=== PATIENT | female | born 2000 | race Caucasian/White ===

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

== ENCOUNTER 2020-02-13 21:17 | Emergency (ER) | payer BC, MEDICAID ==
[2020-02-13] MEDS ORDERED: Sodium Chloride 0.9% 1,000 ML IV ONE (22:16)
[2020-02-13] MEDS ORDERED: Acetaminophen 325 MG Tab PO ONE (22:16)
[2020-02-13 22:31] LABS: BLOOD UREA NITROGEN,BUN 11 mg/dL (7.0-18.0); CARBON DIOXIDE,CO2 20.2 mmol/L (21.0-32.0); CHLORIDE,CL 101 mmol/L (98-107); GLUCOSE RANDOM 90 mg/dL (74-106); POTASSIUM,K 3.8 mmol/L (3.5-5.1); SODIUM,NA 136 mmol/L (136-145)
--- NOTE | 2020-02-13 23:43 | US ---
HISTORY: Positive test. Unknown dates. COMPARISON: None available of this gestation. TECHNIQUE: Transabdominal and transvaginal ultrasound examination of the early was performed. Initial examination was performed with transvaginal technique. Transvaginal examination is used for better evaluation of the and ovaries. FINDINGS: A single intrauterine gestational sac is seen with a pole. The crown-rump length measurement of 1.2 cm gives an estimated gestational age of 7 weeks 3 days. The mean sac diameter of 2.7 centimeters gives an estimated age of 8 weeks 0 days. The composite ultrasound age is 7 weeks 5 days with an estimated date of delivery of 09/26/2020. Regular cardiac activity is seen at 163 BPM. There is no sign of free fluid in the pelvis. There is a hypoechoic region in the right ovary measuring up to 2.0 centimeters in diameter consistent with a resolving corpus luteum cyst of or hemorrhagic cyst. There is pain over the right ovary during ultrasound examination. The left ovary is normal in appearance. There is normal color and pulse Doppler flow in both ovaries. No sign of free fluid. IMPRESSION: Single intrauterine gestation with estimated age of 7 weeks 5 days. Regular cardiac activity is seen. Area of pain corresponds to the right ovary which has a hemorrhagic cyst, possibly a resolving corpus luteum cyst of . Normal color and pulse Doppler flow in both ovaries. Dictated by Kenn Hale MD @ Feb 13 2020 11:36PM Signed by Dr. Kenn Hale @ Feb 13 2020 11:41PM
[2020-02-14] MEDS ORDERED: Nitrofurantoin Monohydrate/Macrocrystalline 100 MG Cap PO ONE (00:01)
--- NOTE | 2020-02-14 00:07 | EDM.PDOC ---
ED HPI GENERAL MEDICAL PROBLEM - General Chief Complaint: Abdominal Pain Stated Complaint: RIGHT LOWER ABDOMINAL PAIN Time Seen by Provider: 02/13/20 22:00 Source of Information: Reports: Patient History Limitations: Reports: No Limitations - History of Present Illness INITIAL COMMENTS - FREE TEXT/NARRATIVE: HISTORY AND PHYSICAL: History of present illness: Is a 19-year-old female who is 1 para 1 who presents the ER today complaining of pain to her right lower quadrant. Patient reports that she has a 1-year-old baby that she is currently breast-feeding. Patient reports that she has not had her menses since her delivery. Patient denies any recent fevers , shakes, chills, nausea, vomiting, diarrhea, dysuria, frequency, urgency, chest pain, shortness of breath. Patient reports that she is tolerating p.o.'s well and has a good appetite. Patient reports that the pain started in her right lower quadrant approximately 3 to 4 days ago and then resolved. Patient reports that this evening the pain came back again. Patient ports no pain with ambulation or cough. Patient denies any vaginal discharge or vaginal bleeding. Patient denies any dysuria frequency urgency. Patient has any melena or bright red blood per rectum. Patient reports normal p.o. intake. Review of systems: As per history of present illness and below otherwise all systems reviewed and negative. Past medical history: As per history of present illness and as reviewed below otherwise noncontributory. Surgical history: As per history of present illness and as reviewed below otherwise noncontributory. Social history: No reported history of drug or alcohol abuse. Family history: As per history of present illness and as reviewed below otherwise noncontributory. Physical exam: Constitutional: Patient is oriented to person, place, and time. Appears well- developed and well-nourished. No distress. HEENT: Moist mucous membranes Head: Normocephalic and atraumatic Eyes: Right eye exhibits no discharge. Left eye exhibits no discharge. No scleral icterus Neck: Normal range of motion. No tracheal deviation present. Cardiovascular: Normal rate and regular rhythm. Pulmonary: Effort normal, no respiratory distress. Abdominal: Soft nondistended no rebound no guarding, no psoas or feed preparation operator signs , no tenderness at McBurney's point. Patient does have tenderness in her right suprapubic region. Musculoskeletal: Normal range of motion Neurologic: Alert and oriented to person, place and time. Skin: [place], warm and dry. Psychiatric: Normal mood and affect. Behavior is normal. Judgment and thought content normal. Nursing note and vital signs have been reviewed Pelvic exam: Deferred for PCP per patient request wants to be discharged at this time. Diagnostics: Ultrasound pelvic reveals intrauterine with. Urinalysis reveals urinary tract infection. Therapeutics: Macrobid 100 p.o. twice daily x7 days. Tylenol as needed for pain. Follow-up with primary care physician in 1 to 2 days for reevaluation. Impression: 1. Intrauterine 2. Pelvic pain 3. Threatened miscarriage 4. Urinary tract infection Plan: Above Reassessment at the time of disposition demonstrates that the patient is in no acute distress. The patient has remained stable throughout the entire ED visit and is without objective evidence for acute process requiring urgent intervention or hospitalization. The patient is stable for discharge, counseling is provided as documented above, discussed symptomatic treatment and specific conditions for return. I have spoken with the patient/caregive and discussed todays findings, in addition to providing specific details for the plan of care. Questions are answered and there is agreement with the plan. Definitive disposition and diagnosis as appropriate pending reevaluation and review of above. 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: Musculoskeletal History: Reports: None Neurological History: Reports: Other (See Below) Psychiatric History: Reports: Anxiety, Depression Endocrine/Metabolic History: Reports: None Hematologic History: Reports: Anemia Immunologic History: Reports: None Oncologic (Cancer) History: Reports: None Dermatologic History: Reports: None - Infectious Disease History Infectious Disease History: Reports: None - Past Surgical History Head Surgeries/Procedures: Reports: None HEENT Surgical History: Reports: Tonsillectomy Musculoskeletal Surgical History: Reports: Other (See Below) Social & Family History - Family History Family Medical History: Noncontributory - Tobacco Use Smoking Status *Q: Never Smoker Second Hand Smoke Exposure: No - Caffeine Use Caffeine Use: Reports: Soda - Recreational Drug Use Recreational Drug Use: No - Living Situation & Occupation Living situation: Reports: Single, Other Occupation: Student ED ROS GENERAL - Review of Systems Review Of Systems: Comprehensive ROS is negative, except as noted in HPI. ED EXAM, GENERAL - Physical Exam Exam: See Below Course - Vital Signs Last Recorded V/S: Last Vital Signs Temp 96.9 F 02/13/20 21:45 Pulse 88 02/13/20 21:45 Resp 14 02/13/20 21:45 BP 116/69 02/13/20 21:45 Pulse Ox 98 02/13/20 21:45 - Orders/Labs/Meds Orders: Active Orders 24 hr Category Date Time Status CULTURE URINE [RM] Stat Lab 02/13/20 21:40 Received Nitrofurantoin Elk/Macrocryst [Macrobid] Med 02/14/20 00:01 Once 100 mg PO ONETIME ONE Labs: Laboratory Tests 02/13/20 02/13/20 02/13/20 Range/Units 21:40 21:40 22:00 WBC 10.74 (4.0-11.0) K/uL RBC 4.76 (4.30-5.90) M/uL Hgb 13.9 (12.0-16.0) g/dL Hct 39.4 (36.0-46.0) % MCV 82.8 (80.0-98.0) fL MCH 29.2 (27.0-32.0) pg MCHC 35.3 (31.0-37.0) g/dL RDW Std Deviation 38.2 (28.0-62.0) fl RDW Coeff of Nohemy 13 (11.0-15.0) % Plt Count 233 (150-400) K/uL MPV 9.20 (7.40-12.00) fL Nucleated RBC % 0.0 /100WBC Nucleated RBCs # 0 K/uL Sodium (136-145) mmol/L Potassium (3.5-5.1) mmol/L Chloride (98-107) mmol/L Carbon Dioxide (21.0-32.0) mmol/L BUN (7.0-18.0) mg/dL Creatinine (0.6-1.0) mg/dL Est Cr Clr Drug Dosing mL/min Estimated GFR (MDRD) ml/min Glucose (74-106) mg/dL Calcium (8.5-10.1) mg/dL Total Bilirubin (0.2-1.0) mg/dL AST (15-37) IU/L ALT (14-63) IU/L Alkaline Phosphatase (46-116) U/L Total Protein (6.4-8.2) g/dL Albumin (3.4-5.0) g/dL Globulin (2.6-4.0) g/dL Albumin/Globulin Ratio (0.9-1.6) HCG, Quant mIU/mL Urine Color YELLOW Urine Appearance CLEAR Urine pH 6.0 (5.0-8.0) Ur Specific [place] >= 1.030 (1.001-1.035) Urine Protein NEGATIVE (NEGATIVE) mg/dL Urine Glucose (UA) NEGATIVE (NEGATIVE) mg/dL Urine Ketones NEGATIVE (NEGATIVE) mg/dL Urine Occult Blood NEGATIVE (NEGATIVE) Urine Nitrite NEGATIVE (NEGATIVE) Urine Bilirubin NEGATIVE (NEGATIVE) Urine Urobilinogen 0.2 (<2.0) EU/dL Ur Leukocyte Esterase SMALL H (NEGATIVE) Urine RBC 0-2 (0-2/HPF) Urine WBC 10-13 (0-5/HPF) Ur Epithelial Cells MODERATE (NONE-FEW) Urine Bacteria RARE (NEGATIVE) Urine Mucus MODERATE (NONE-MOD) Urine HCG, Qual POSITIVE (NEGATIVE) Blood Type 02/13/20 02/13/20 02/13/20 Range/Units 22:00 22:00 22:00 WBC (4.0-11.0) K/uL RBC (4.30-5.90) M/uL Hgb (12.0-16.0) g/dL Hct (36.0-46.0) % MCV (80.0-98.0) fL MCH (27.0-32.0) pg MCHC (31.0-37.0) g/dL RDW Std Deviation (28.0-62.0) fl RDW Coeff of Nohemy (11.0-15.0) % Plt Count (150-400) K/uL MPV (7.40-12.00) fL Nucleated RBC % /100WBC Nucleated RBCs # K/uL Sodium 136 (136-145) mmol/L Potassium 3.8 (3.5-5.1) mmol/L Chloride 101 (98-107) mmol/L Carbon Dioxide 20.2 L (21.0-32.0) mmol/L BUN 11 (7.0-18.0) mg/dL Creatinine 0.6 (0.6-1.0) mg/dL Est Cr Clr Drug Dosing 123.72 mL/min Estimated GFR (MDRD) > 60.0 ml/min Glucose 90 (74-106) mg/dL Calcium 9.1 (8.5-10.1) mg/dL Total Bilirubin 0.4 (0.2-1.0) mg/dL AST 23 (15-37) IU/L ALT 26 (14-63) IU/L Alkaline Phosphatase 73 (46-116) U/L Total Protein 7.4 (6.4-8.2) g/dL Albumin 3.9 (3.4-5.0) g/dL Globulin 3.5 (2.6-4.0) g/dL Albumin/Globulin Ratio 1.1 (0.9-1.6) HCG, Quant 893507.0 mIU/mL Urine Color Urine Appearance Urine pH (5.0-8.0) Ur Specific [place] (1.001-1.035) Urine Protein (NEGATIVE) mg/dL Urine Glucose (UA) (NEGATIVE) mg/dL Urine Ketones (NEGATIVE) mg/dL Urine Occult Blood (NEGATIVE) Urine Nitrite (NEGATIVE) Urine Bilirubin (NEGATIVE) Urine Urobilinogen (<2.0) EU/dL Ur Leukocyte Esterase (NEGATIVE) Urine RBC (0-2/HPF) Urine WBC (0-5/HPF) Ur Epithelial Cells (NONE-FEW) Urine Bacteria (NEGATIVE) Urine Mucus (NONE-MOD) Urine HCG, Qual (NEGATIVE) Blood Type A POSITIVE Meds: Medications Discontinued Medications Generic Name Dose Route Start Last Admin Trade Name Freq PRN Reason Stop Dose Admin Acetaminophen 650 mg 02/13/20 22:16 02/13/20 22:28 Tylenol PO 02/13/20 22:17 650 mg NOW ONE Administration Sodium Chloride 1,000 mls @ 999 mls/hr 02/13/20 22:16 02/13/20 22:29 Normal Saline IV 02/13/20 23:16 999 mls/hr .Bolus ONE Administration Departure - Departure Time of Disposition: 00:06 Disposition: Home, Self-Care 01 Condition: Good Clinical Impression: Threatened miscarriage in early , Right ovarian cyst UTI (urinary tract infection) Qualifiers: Urinary tract infection type: site unspecified Hematuria presence: without hematuria Qualified Code(s): N39.0 - Urinary tract infection, site not specified - Discharge Information *PRESCRIPTION DRUG MONITORING PROGRAM REVIEWED*: Not Applicable *COPY OF PRESCRIPTION DRUG MONITORING REPORT IN PATIENT [place]: Not Applicable Instructions: Threatened Miscarriage, Ovarian Cyst, [id number], Urinary Tract Infection, Adult, [id number] Referrals: Sherie Antony MD [Primary Care Provider] - Additional Instructions: You have been seen and evaluated today in the emergency department secondary to the pain you are experiencing in your right pelvic region. Your test was positive. Your ultrasound revealed a 7-week 5-day intrauterine as well as a right small hemorrhagic ovarian cyst. Also appears that you have a 's slight urinary tract infection will be treated with Macrobid twice a day for 7 days. You can take Tylenol as needed to help with the pain. Please make an appointment to follow-up with your OB doctor this week. The following information is given to patients seen in the emergency department who are being discharged to home. This information is to outline your options for follow-up care. We provide all patients seen in our emergency department with a follow-up referral. The need for follow-up, as well as the timing and circumstances, are variable depending upon the specifics of your emergency department visit. If you don't have a primary care physician on staff, we will provide you with a referral. We always advise you to contact your personal physician following an emergency department visit to inform them of the circumstance of the visit and for follow-up with them and/or the need for any referrals to a consulting specialist. The emergency department will also refer you to a specialist when appropriate. This referral assures that you have the opportunity for follow-up care with a specialist. All of these measure are taken in an effort to provide you with optimal care, which includes your follow-up. Under all circumstances we always encourage you to contact your private physician who remains a resource for coordinating your care. When calling for follow-up care, please make the office aware that this follow-up is from your recent emergency room visit. If for any reason you are refused follow-up, please contact the [facility] Emergency Department at and asked to speak to the emergency department charge nurse. Sepsis Event Note (ED) - Evaluation Sepsis Screening Result: No Definite Risk - Focused Exam Vital Signs: Vital Signs Temp Pulse Resp BP Pulse Ox 02/13/20 21:45 96.9 F 88 14 116/69 98 - My Orders Last 24 Hours: My Active Orders 02/13/20 21:40 CULTURE URINE [RM] Stat 02/14/20 00:01 Nitrofurantoin Elk/Macrocryst [Macrobid] 100 mg PO ONETIME ONE - Assessment/Plan Last 24 Hours: My Active Orders 02/13/20 21:40 CULTURE URINE [RM] Stat 02/14/20 00:01 Nitrofurantoin Elk/Macrocryst [Macrobid] 100 mg PO ONETIME ONE
[2020-02-14 00:27] VITALS: BP 106/76; PULSE 64
== END 2020-02-14 00:28 | disposition home or self-care (01) ==
LOC: MW.ED 21:17
DX: O20.0 Threatened abortion (principal); O34.81 Maternal care for other abnormalities of pelvic organs, first trimester; N83.201 Unspecified ovarian cyst, right side; O23.41 Unspecified infection of urinary tract in pregnancy, first trimester; O99.341 Other mental disorders complicating pregnancy, first trimester; F41.9 Anxiety disorder, unspecified; F32.9 Major depressive disorder, single episode, unspecified; Z88.1 Allergy status to other antibiotic agents; Z79.899 Other long term (current) drug therapy; Z3A.01 Less than 8 weeks gestation of pregnancy
CPT/HCPCS: 36415; 76817; 80053; 81001; 81025; 84702; 85027; 86900; 86901; 87086; 99284; A9270; J7030

== ENCOUNTER 2020-09-21 11:59 | Inpatient (IN) | payer MEDICAID ==
[2020-09-21] MEDS ORDERED: Sodium Chloride 0.9% 10 ML Syringe FLUSH PRN (12:42)
[2020-09-21] MEDS ORDERED: Misoprostol 200 MCG Tab PO PRN (12:42)
[2020-09-21] MEDS ORDERED: Butorphanol 1 MG/ML SDV IVPUSH PRN (12:42)
[2020-09-21] MEDS ORDERED: Water For Irrigation,Sterile 1,000 ML Container IRR PRN (12:42)
[2020-09-21] MEDS ORDERED: Methylergonovine 0.2 MG/1 ML Amp IM PRN (12:42)
[2020-09-21] MEDS ORDERED: Nalbuphine 10 MG/1 ML Vial IVPUSH PRN (12:42)
[2020-09-21] MEDS ORDERED: Sodium Chloride 0.9% 10 ML SDV IV PRN (12:42)
[2020-09-21] MEDS ORDERED: Sodium Chloride 0.9% 2.5 ML Syringe FLUSH PRN (12:42)
[2020-09-21] MEDS ORDERED: Carboprost Tromethamine 250 MCG/1 ML Amp IM PRN (12:42)
[2020-09-21] MEDS ORDERED: Tranexamic Acid 1,000 MG in Sodium Chloride 0.9% 100 ML IV PRN (12:42)
[2020-09-21] MEDS ORDERED: Lidocaine 1% 50 ML MDV INJECT PRN (12:42)
[2020-09-21] MEDS ORDERED: Oxytocin/0.9 % Sodium Chloride 30 UNIT/500 ML BAG IV SCH ×2 (12:45→13:15)
[2020-09-21] MEDS ORDERED: Misoprostol 25 MCG (1/4 of 100 MCG) Tab VAG PRN ×2 (13:04)
[2020-09-21] MEDS ORDERED: Terbutaline 1 MG/ML SDV SUBCUT PRN (13:04)
[2020-09-21] MEDS ORDERED: Misoprostol 25 MCG (1/4 of 100 MCG) Tab PO ONE (13:05)
--- NOTE | 2020-09-21 17:18 | PCM.LDHP ---
L&D History of Present Illness - General Date of Service: 09/21/20 Admit Problem/Dx: Patient Status Order with Admit Dx/Problem 09/21/20 12:42 Patient Status [ADT] Routine Admission Diagnosis/Problem Admission Diagnosis/Problem 09/21/20 17:10 Bess is a 19 yo at 39+4 weeks gestation (BARRETT 09/24/2020) that presents to L&D today with C/O spontaneous painful contractions. Reports adequate movement. Denies meghan vaginal bleeding, LOF at this time. A pos, Ab screen neg, RI, GBS neg. EFW via [place] 7-8 lbs. Pertinent medical history includes: anxiety, depression, NSVDx1. Ax: amoxicillin (hives); toradol (rash). Medications: PNV, hydroxyzine PRN for anxiety. Patient has no other complaints or concerns at this time. Patient was on hold for elective IOL today. Source of Information: Patient History Limitations: Reports: No Limitations - History of Present Illness Pain Score: 9 - Related Data Allergies/Adverse Reactions: Allergies Allergy/AdvReac Type Severity Reaction Status Date / Time amoxicillin Allergy Rash Verified 08/20/20 18:41 Home Medications: Home Meds Acetaminophen/Diphenhydramine [Tylenol Pm Ex-Strength Caplet] 2 tab PO BEDTIME 09/21/20 [History] Past Medical History HEENT History: Reports: Allergic Rhinitis Cardiovascular History: Reports: None Other Cardiovascular History: medication related tachycardia Respiratory History: Reports: None Gastrointestinal History: Reports: None Genitourinary History: Reports: None 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: 1 LMP (Approximate): Musculoskeletal History: Reports: Fracture Neurological History: Reports: None Psychiatric History: Reports: Anxiety, Depression Endocrine/Metabolic History: Reports: None Hematologic History: Reports: Anemia Immunologic History: Reports: None Oncologic (Cancer) History: Reports: None Dermatologic History: Reports: None - Infectious Disease History Infectious Disease History: Reports: None - Past Surgical History Head Surgeries/Procedures: Reports: None HEENT Surgical History: Reports: Tonsillectomy Female Surgical History: Reports: None Musculoskeletal Surgical History: Reports: ORIF Other Musculoskeletal Surgeries/Procedures:: left index finger Social & Family History - Family History Family Medical History: No Pertinent Family History HEENT: Reports: None Cardiac: Reports: Hypertension Respiratory: Reports: Asthma GI: Reports: Irritable Bowel Syndrome : Reports: None OBGYN: Reports: Musculoskeletal: Reports: Arthritis Neurological: Reports: Dementia Psychiatric: Reports: Anxiety, Depression, Suicide Attempt Endocrine/Metabolic: Reports: None Hematologic: Reports: None Immunologic: Reports: None Dermatologic: Reports: Eczema Oncologic: Reports: Colon, Leukemia - Tobacco Use Tobacco Use Status *Q: Never Tobacco User Second Hand Smoke Exposure: No - Caffeine Use Caffeine Use: Reports: Soda - Recreational Drug Use Recreational Drug Use: No - Living Situation & Occupation Living situation: Reports: Single, Other Occupation: Student H&P Review of Systems - Review of Systems: Review Of Systems: Comprehensive ROS is negative, except as noted in HPI. General: Reports: No Symptoms HEENT: Reports: No Symptoms Pulmonary: Reports: No Symptoms Cardiovascular: Reports: No Symptoms Gastrointestinal: Reports: No Symptoms Genitourinary: Reports: No Symptoms Musculoskeletal: Reports: No Symptoms Skin: Reports: No Symptoms Psychiatric: Reports: No Symptoms Neurological: Reports: No Symptoms Hematologic/Lymphatic: Reports: No Symptoms Immunologic: Reports: No Symptoms L&D Exam - Exam Exam: See Below - Vital Signs Vital Signs: VSS, afebrile. Weight: 180 lb - OB Specific Fundal Height In cm: 39 Contraction Frequency (min): occasional Contraction Intensity: Mild to Moderate Movement: Active Heart Tones: Present Heart Tones per Min: 125 Heart Rate (FHR) Variability: Moderate (6-25 bmp) Presentation: Vertex (via SVE and handheld TAUS) - Barksdale Score Barksdale Score Cervix Position: Posterior Barksdale Score Consistency: Soft Barksdale Score Effacement: 31-50% Barksdale Score Dilation: 1-2 cm Barksdale Score 's Station: -2 Barksdale Score Total: 5 - Exam General: Alert, Oriented, Cooperative HEENT: Conjunctiva Clear, Hearing Intact, Mucosa Moist & [place], PERRLA Neck: Supple, Trachea Midline Lungs: Clear to Auscultation, Normal Respiratory Effort Cardiovascular: Regular Rate, Regular Rhythm GI/Abdominal Exam: Normal Bowel Sounds, Soft, Non-Tender, No Organomegaly, No Distention Rectal Exam: Deferred Genitourinary: Normal speculum exam, Enlarged uterus (Gravid uterus) Back Exam: Normal Inspection, Full Range of Motion Extremities: Normal Inspection, Normal Range of Motion, Non-Tender, No Pedal Edema, Normal Capillary Refill Skin: Warm, Dry, Intact Neurological: Cranial Nerves Intact, Reflexes Equal Bilateral Psychiatric: Alert, Normal Affect, Normal Mood - Patient Data Lab Results Last 24 hrs: Laboratory Results - last 24 hr 09/21/20 09/21/20 09/21/20 Range/Units 12:15 12:15 12:45 WBC 10.65 (4.0-11.0) K/uL RBC 3.82 L (4.30-5.90) M/uL Hgb 8.9 L (12.0-16.0) g/dL Hct 29.7 L (36.0-46.0) % MCV 77.7 L (80.0-98.0) fL MCH 23.3 L (27.0-32.0) pg MCHC 30.0 L (31.0-37.0) g/dL RDW Std Deviation 45.9 (28.0-62.0) fl RDW Coeff of Nohemy 16 H (11.0-15.0) % Plt Count 237 (150-400) K/uL MPV 9.70 (7.40-12.00) fL Nucleated RBC % 1.2 /100WBC Nucleated RBCs # 0 K/uL SARS-CoV-2 RNA (MARYELLEN) NEGATIVE (NEGATIVE) Blood Type A POSITIVE Antibody Screen NEGATIVE Result Diagrams: 09/21/20 12:15 - Problem List (1) Encounter for induction of labor SNOMED Code(s): 834398672 ICD Code: Z34.90 - ENCNTR FOR SUPRVSN OF NORMAL , UNSP, UNSP TRIMESTER Status: Acute Current Visit: Yes (2) Uterine contractions SNOMED Code(s): 883442337 ICD Code: [id number] - Status: Acute Current Visit: Yes (3) 39 weeks gestation of SNOMED Code(s): 18703991 ICD Code: Z3A.39 - 39 WEEKS GESTATION OF Status: Acute Current Visit: Yes Problem List Initiated/Reviewed/Updated: Yes Orders Last 24hrs: Active Orders 24 hr Category Date Time Status Patient Status [ADT] Routine ADT 09/21/20 12:42 Active Bedrest Bathroom Privileges [RC] ASDIRECTED Care 09/21/20 13:04 Active Communication Order [RC] ASDIRECTED Care 09/21/20 13:04 Active Communication Order [RC] ASDIRECTED Care 09/21/20 13:04 Active Communication Order [RC] ASDIRECTED Care 09/21/20 13:04 Active Heart Tones [RC] CONTINUOUS Care 09/21/20 12:42 Active Non Stress Test [RC] PER UNIT ROUTINE Care 09/21/20 12:42 Active May Shower [RC] ASDIRECTED Care 09/21/20 12:42 Active Notify Provider [RC] PRN Care 09/21/20 12:42 Active Notify Provider [RC] PRN Care 09/21/20 13:04 Active Notify Provider [RC] PRN Care 09/21/20 13:04 Active Notify Provider [RC] STAT Care 09/21/20 13:04 Active Up ad Shaunna [RC] ASDIRECTED Care 09/21/20 12:42 Active Vaginal Exam [RC] PRN Care 09/21/20 12:42 Active Vital Signs [RC] PER UNIT ROUTINE Care 09/21/20 12:42 Active Vital Signs [RC] PER UNIT ROUTINE Care 09/21/20 13:04 Active Regular Diet [DIET] Diet 09/21/20 Lunch Active RPR (SYPHILIS SERO) W/ RFLX [REF] Routine Lab 09/21/20 12:15 Received Butorphanol [Stadol] Med 09/21/20 12:42 Active 1 mg IVPUSH Q1H PRN Carboprost Tromethamine [Hemabate DS] Med 09/21/20 12:42 Active 250 mcg IM ASDIRECTED PRN Lactated Ringers [Ringers, Lactated] 1,000 ml Med 09/21/20 12:45 Active IV ASDIRECTED Lidocaine 1% [Xylocaine 1%] Med 09/21/20 12:42 Active 50 ml INJECT ONETIME PRN Methylergonovine [Methergine] Med 09/21/20 12:42 Active 0.2 mg IM ASDIRECTED PRN Nalbuphine [Nubain] Med 09/21/20 12:42 Active 10 mg IVPUSH Q1H PRN Oxytocin/0.9 % Sodium Chloride [Oxytocin 30 Unit/500 ML Med 09/21/20 12:45 Active -NS] 30 unit in 500 ml IV TITRATE Oxytocin/0.9 % Sodium Chloride [Oxytocin 30 Unit/500 ML Med 09/21/20 13:15 Active -NS] 30 unit in 500 ml IV TITRATE Sodium Chloride 0.9% [Normal Saline] Med 09/21/20 12:42 Active 10 ml IV ASDIRECTED PRN Sodium Chloride 0.9% [Saline Flush] Med 09/21/20 12:42 Active 10 ml FLUSH ASDIRECTED PRN Sodium Chloride 0.9% [Saline Flush] Med 09/21/20 12:42 Active 2.5 ml FLUSH ASDIRECTED PRN Terbutaline [Brethine] Med 09/21/20 13:04 Active 0.25 mg SUBCUT ASDIRECTED PRN Tranexamic Acid [Cyklokapron] 1,000 mg Med 09/21/20 12:42 Active Sodium Chloride 0.9% [Normal Saline] 100 ml IV ONETIME Water For Irrigation,Sterile [Sterile Water for Med 09/21/20 12:42 Active Irrigation] 1,000 ml IRR ASDIRECTED PRN miSOPROStoL [Cytotec] Med 09/21/20 12:42 Active 200 mcg PO ONETIME PRN miSOPROStoL [Cytotec] Med 09/21/20 13:04 Active 25 mcg VAG ONETIME PRN miSOPROStoL [Cytotec] Med 09/21/20 13:04 Active 25 mcg VAG Q4H PRN Scalp Electrode [WOMSER] Per Unit Routine Oth 09/21/20 12:42 Ordered Medication Administration Instruction [OM.PC] Q3H Oth 09/21/20 13:15 Ordered Peripheral IV Insertion Adult [OM.PC] Routine Oth 09/21/20 12:42 Ordered Resuscitation Status Routine Resus Stat 09/21/20 12:42 Ordered Medication Orders Butorphanol Tartrate (Stadol) 1 mg IVPUSH Q1H PRN PRN Reason: Pain Last Admin: 09/21/20 15:40 Dose: 1 mg Documented by: KATERINA Carboprost Tromethamine (Hemabate Ds) 250 mcg IM ASDIRECTED PRN PRN Reason: Post Hemorrhage Oxytocin/Sodium Chloride (Oxytocin 30 Unit/500 Ml-Ns) 30 unit in 500 mls @ 500 mls/hr IV TITRATE BLANCA Tranexamic Acid 1,000 mg/ (Sodium Chloride) 110 mls @ 660 mls/hr IV ONETIME PRN PRN Reason: Bleeding Lactated Ringer's (Ringers, Lactated) 1,000 mls @ 150 mls/hr IV ASDIRECTED BLANCA Oxytocin/Sodium Chloride (Oxytocin 30 Unit/500 Ml-Ns) 30 unit in 500 mls @ 2 mls/hr IV TITRATE BLANCA; Protocol Lidocaine HCl (Xylocaine 1%) 50 ml INJECT ONETIME PRN PRN Reason: Laceration repair Methylergonovine Maleate (Methergine) 0.2 mg IM ASDIRECTED PRN PRN Reason: Post Hemorrhage Misoprostol (Cytotec) 200 mcg PO ONETIME PRN PRN Reason: Post Hemorrhage Misoprostol (Cytotec) 25 mcg VAG ONETIME PRN PRN Reason: Cervical Ripening Last Admin: 09/21/20 13:40 Dose: 25 mcg Documented by: KATERINA Misoprostol (Cytotec) 25 mcg VAG Q4H PRN PRN Reason: Cervical Ripening Nalbuphine HCl (Nubain) 10 mg IVPUSH Q1H PRN PRN Reason: Pain (severe 7-10) Sodium Chloride (Saline Flush) 10 ml FLUSH ASDIRECTED PRN PRN Reason: Keep Vein Open Sodium Chloride (Saline Flush) 2.5 ml FLUSH ASDIRECTED PRN PRN Reason: Keep Vein Open Sodium Chloride (Normal Saline) 10 ml IV ASDIRECTED PRN PRN Reason: IV Use Sterile Water (Sterile Water For Irrigation) 1,000 ml IRR ASDIRECTED PRN PRN Reason: delivery Terbutaline Sulfate (Brethine) 0.25 mg SUBCUT ASDIRECTED PRN PRN Reason: Tacysystole Assessment/Plan Comment:: Spontaneous cervical change not achieved since arrival ~4 hours ago. Admit for observation for elective IOL in anticipation of of term viable . FHR Cat I. Spontaneous contractions noted. Continue with cytotec IOL as originally planned, RBAs discussed and consents signed in office 09/15/2020. Discussed once more, patient has not questions or concerns at this time. Plan to re-assess cervical change ~4-6 hours S/P dose #1 of cytotec administration. May ambulate and hydrotherapy as desired after reactive NST achieved; repeat NST per orders. May receive epidural if desired once 4-5 cm. Hgb 8.9, plan for aggressive active third stage management and then PO iron BID or as indicated. See new orders. Dr. Montes notified and agreeable with POC.
[2020-09-21] MEDS: Lactated Ringers 1,000 ML IV SCH ×2 (19:55→21:01)
[2020-09-21] MEDS ORDERED: Ropivacaine HCl/PF 100 ML ONE (20:19)
[2020-09-21] MEDS ORDERED: Ropivacaine 0.2% PF 2 MG/ML 20 ML SDV ONE (20:20)
[2020-09-21] MEDS ORDERED: fentaNYL 100 MCG/2 ML SDV ONE (20:20)
--- NOTE | 2020-09-21 21:14 | PCM.PREANE ---
Preanesthetic Assessment - Anesthesia/Transfusion/Family Hx Anesthesia History: Prior Anesthesia Without Reaction Family History of Anesthesia Reaction: No Transfusion History: No Prior Transfusion(s) - Review of Systems General: No Symptoms Pulmonary: No Symptoms Cardiovascular: No Symptoms Gastrointestinal: No Symptoms Neurological: No Symptoms Other: Reports: None (Patient denies any personal or family history of bleeding or clotting problems) - Physical Assessment Height: 1.57 m Weight: 81.647 kg ASA Class: 2 Mental Status: Alert & Oriented x3 Airway Class: Mallampati = 3 Dentition: Reports: Normal Dentition ROM/Head Extension: Full - Lab Values: Laboratory Last Values WBC 10.65 K/uL (4.0-11.0) 09/21/20 12:15 RBC 3.82 M/uL (4.30-5.90) L 09/21/20 12:15 Hgb 8.9 g/dL (12.0-16.0) L 09/21/20 12:15 Hct 29.7 % (36.0-46.0) L 09/21/20 12:15 MCV 77.7 fL (80.0-98.0) L 09/21/20 12:15 MCH 23.3 pg (27.0-32.0) L 09/21/20 12:15 MCHC 30.0 g/dL (31.0-37.0) L 09/21/20 12:15 RDW Std Deviation 45.9 fl (28.0-62.0) 09/21/20 12:15 RDW Coeff of Nohemy 16 % (11.0-15.0) H 09/21/20 12:15 Plt Count 237 K/uL (150-400) 09/21/20 12:15 MPV 9.70 fL (7.40-12.00) 09/21/20 12:15 Nucleated RBC % 1.2 /100WBC 09/21/20 12:15 Nucleated RBCs # 0 K/uL 09/21/20 12:15 SARS-CoV-2 RNA (MARYELLEN) NEGATIVE (NEGATIVE) 09/21/20 12:45 Blood Type A POSITIVE 09/21/20 12:15 Antibody Screen NEGATIVE 09/21/20 12:15 - Allergies Allergies/Adverse Reactions: Allergies Allergy/AdvReac Type Severity Reaction Status Date / Time amoxicillin Allergy Rash Verified 08/20/20 18:41 - Acknowledgements Anesthesia Type Planned: Epidural Pt an Appropriate Candidate for the Planned Anesthesia: Yes Alternatives and Risks of Anesthesia Discussed w Pt/Guardian: Yes Pt/Guardian Understands and Agrees with Anesthesia Plan: Yes PreAnesthesia Questionnaire HEENT History: Reports: Allergic Rhinitis Cardiovascular History: Reports: None Other Cardiovascular History: medication related tachycardia Respiratory History: Reports: None Gastrointestinal History: Reports: None Genitourinary History: Reports: None 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 History: Reports: Fracture Neurological History: Reports: None Psychiatric History: Reports: Anxiety, Depression Endocrine/Metabolic History: Reports: None Hematologic History: Reports: Anemia Immunologic History: Reports: None Oncologic (Cancer) History: Reports: None Dermatologic History: Reports: None - Infectious Disease History Infectious Disease History: Reports: None - Past Surgical History Head Surgeries/Procedures: Reports: None HEENT Surgical History: Reports: Tonsillectomy Female Surgical History: Reports: None Musculoskeletal Surgical History: Reports: ORIF Other Musculoskeletal Surgeries/Procedures:: left index finger - SUBSTANCE USE Tobacco Use Status *Q: Never Tobacco User Second Hand Smoke Exposure: No Recreational Drug Use History: No - HOME MEDS Home Medications: Home Meds Acetaminophen/Diphenhydramine [Tylenol Pm Ex-Strength Caplet] 2 tab PO BEDTIME 09/21/20 [History] - CURRENT (IN HOUSE) MEDS Current Meds: Current Medications Butorphanol Tartrate (Stadol) 1 mg IVPUSH Q1H PRN PRN Reason: Pain Last Admin: 09/21/20 15:40 Dose: 1 mg Documented by: Carboprost Tromethamine (Hemabate Ds) 250 mcg IM ASDIRECTED PRN PRN Reason: Post Hemorrhage Oxytocin/Sodium Chloride (Oxytocin 30 Unit/500 Ml-Ns) 30 unit in 500 mls @ 500 mls/hr IV TITRATE BLANCA Tranexamic Acid 1,000 mg/ (Sodium Chloride) 110 mls @ 660 mls/hr IV ONETIME PRN PRN Reason: Bleeding Lactated Ringer's (Ringers, Lactated) 1,000 mls @ 150 mls/hr IV ASDIRECTED BLANCA Last Admin: 09/21/20 21:01 Dose: 999 mls/hr Documented by: Oxytocin/Sodium Chloride (Oxytocin 30 Unit/500 Ml-Ns) 30 unit in 500 mls @ 2 mls/hr IV TITRATE BLANCA; Protocol Lidocaine HCl (Xylocaine 1%) 50 ml INJECT ONETIME PRN PRN Reason: Laceration repair Methylergonovine Maleate (Methergine) 0.2 mg IM ASDIRECTED PRN PRN Reason: Post Hemorrhage Misoprostol (Cytotec) 200 mcg PO ONETIME PRN PRN Reason: Post Hemorrhage Misoprostol (Cytotec) 25 mcg VAG ONETIME PRN PRN Reason: Cervical Ripening Last Admin: 09/21/20 13:40 Dose: 25 mcg Documented by: Misoprostol (Cytotec) 25 mcg VAG Q4H PRN PRN Reason: Cervical Ripening Nalbuphine HCl (Nubain) 10 mg IVPUSH Q1H PRN PRN Reason: Pain (severe 7-10) Sodium Chloride (Saline Flush) 10 ml FLUSH ASDIRECTED PRN PRN Reason: Keep Vein Open Sodium Chloride (Saline Flush) 2.5 ml FLUSH ASDIRECTED PRN PRN Reason: Keep Vein Open Sodium Chloride (Normal Saline) 10 ml IV ASDIRECTED PRN PRN Reason: IV Use Sterile Water (Sterile Water For Irrigation) 1,000 ml IRR ASDIRECTED PRN PRN Reason: delivery Terbutaline Sulfate (Brethine) 0.25 mg SUBCUT ASDIRECTED PRN PRN Reason: Tacysystole Discontinued Medications Fentanyl (Sublimaze) Confirm Administered Dose 200 mcg .ROUTE .STK-MED ONE Stop: 09/21/20 20:21 Ropivacaine (Naropin 0.2%) Confirm Administered Dose 100 mls @ as directed .ROUTE .STK-MED ONE Stop: 09/21/20 20:20 Misoprostol (Cytotec) 25 mcg PO ONETIME ONE Stop: 09/21/20 13:06 Last Admin: 09/21/20 13:37 Dose: 25 mcg Documented by: Ropivacaine (Naropin 0.2%) Confirm Administered Dose 20 ml .ROUTE .STK-MED ONE Stop: 09/21/20 20:21
[2020-09-21] MEDS ORDERED: Oxytocin/0.9 % Sodium Chloride 30 UNIT/500 ML BAG ONE (21:27)
[2020-09-21] MEDS ORDERED: Docusate Sodium 100 MG Cap PO PRN (22:52)
[2020-09-21] MEDS ORDERED: Benzocaine/Menthol 20%-0.5% Spray 78 GM Cannister TOP PRN (22:52)
[2020-09-21] MEDS ORDERED: oxyCODONE 5 MG Tab PO PRN (22:52)
[2020-09-21] MEDS ORDERED: Acetaminophen 500 MG Tab PO PRN ×2 (22:52)
[2020-09-21] MEDS ORDERED: Ibuprofen 400 MG Tab PO PRN (22:52)
[2020-09-21] MEDS ORDERED: Witch Hazel Medicated Pads 40/Jar TOP PRN (22:52)
[2020-09-21] MEDS ORDERED: Lanolin 100% Cream 7 GM Tube TOP PRN (22:52)
[2020-09-21] MEDS ORDERED: Bisacodyl 10 MG Supp RECTAL PRN (22:52)
--- NOTE | 2020-09-21 23:05 | PCM.DEL ---
L & D Note - General Info Date of Service: 09/21/20 Mother's Due Date: 09/24/20 - Delivery Note Labor: Spontaneous Cervical Ripening Method: Misoprostil Delivery Outcome: Livebirth Delivery Method: Spontaneous Vaginal Delivery-Single Infant Delivery Mode: Spontaneous Presentation: Left Occiput Anterior (JULIAN) Nuchal Cord: None Anesthesia Type: Epidural Amniotic Fluid Description: Clear Episiotomy Type: None Laceration: None Placenta: Intact, Spontaneous Cord: 3 Vessels Estimated Blood Loss: 400 Resuscitation Needed: No : Stimulated, Warmed, [place] Used Score 1 min: 8 Score 5 min: 9 Second Stage Interventions: Reports: Encouragement Given, Pushing Effectively, Pushing, Stirrups/Leg Supports Delivery Comments (Free Text/Narrative):: Bess is a 19 yo s/p elective IOL with subsequent uncomplicated at 39+4 weeks gestation (BARRETT 09/24/2020). A pos, Ab screen neg, RI, GBS neg. Patient pushing effectively with adequate pain control via BLE epidural. head delivered JULIAN without issue, body following easily with next push. NBF placed to maternal abdomen with spontaneous cries, warm, dried, stimulated. IV pitocin bolus commenced for active third stage management. Umbilical cord left intact x 3 min, clamped x2, cut by FOB. Cord blood collected per protocol. Placenta delivered ~12 min S/P NBF, intact, Malloy, 3VC. Perineum intact with minimal vaginal bruising. EBL ~400 ml. Apgars: 8/9. weight 8 lb 2 oz. Mother and NBF resting comfortably and quietly in bed. Induction Criteria - Barksdale Score Barksdale Score Dilation: 1-2 cm Barksdale Score Effacement: 40-50% Barksdale Score 's Station: -2 Barksdale Score Consistency: Soft Barksdale Score Cervix Position: Posterior Barksdale Score Total: 5 Barksdale Score Presenting Part: Reports: Cephalic - Induction Gestational Age >/= 39 wks: Yes Estimated Pelvis: Reports: Adequate Reassuring Monitoring Strip: Yes Absence of Tachy Systole: Yes - General Info Date of Service: 09/21/20 Admission Dx/Problem (Free Text): Patient Status Order with Admit Dx/Problem 09/21/20 12:42 Patient Status [ADT] Routine Admission Diagnosis/Problem Admission Diagnosis/Problem 09/21/20 17:10 Bess is a 19 yo at 39+4 weeks gestation (BARRETT 09/24/2020) that presents to L&D today with C/O spontaneous painful contractions. Reports adequate movement. Denies meghan vaginal bleeding, LOF at this time. A pos, Ab screen neg, RI, GBS neg. EFW via [place] 7-8 lbs. Pertinent medical history includes: anxiety, depression, NSVDx1. Ax: amoxicillin (hives); toradol (rash). Medications: PNV, hydroxyzine PRN for anxiety. Patient has no other complaints or concerns at this time. Patient was on hold for elective IOL today. Functional Status: Reports: Pain Controlled, Tolerating Diet - Review of Systems General: Reports: No Symptoms HEENT: Reports: No Symptoms Pulmonary: Reports: No Symptoms Cardiovascular: Reports: No Symptoms Gastrointestinal: Reports: No Symptoms Genitourinary: Reports: No Symptoms Musculoskeletal: Reports: No Symptoms Skin: Reports: No Symptoms Neurological: Reports: No Symptoms Psychiatric: Reports: No Symptoms - Patient Data Vitals - Most Recent: VSS, afebrile. See flowsheet. Weight - Most Recent: 180 lb Lab Results Last 24 Hours: Laboratory Results - last 24 hr 09/21/20 09/21/20 09/21/20 Range/Units 12:15 12:15 12:45 WBC 10.65 (4.0-11.0) K/uL RBC 3.82 L (4.30-5.90) M/uL Hgb 8.9 L (12.0-16.0) g/dL Hct 29.7 L (36.0-46.0) % MCV 77.7 L (80.0-98.0) fL MCH 23.3 L (27.0-32.0) pg MCHC 30.0 L (31.0-37.0) g/dL RDW Std Deviation 45.9 (28.0-62.0) fl RDW Coeff of Nohemy 16 H (11.0-15.0) % Plt Count 237 (150-400) K/uL MPV 9.70 (7.40-12.00) fL Nucleated RBC % 1.2 /100WBC Nucleated RBCs # 0 K/uL SARS-CoV-2 RNA (MARYELLEN) NEGATIVE (NEGATIVE) Blood Type A POSITIVE Antibody Screen NEGATIVE Med Orders - Current: Current Medications Discontinued Medications Butorphanol Tartrate (Stadol) 1 mg IVPUSH Q1H PRN PRN Reason: Pain Last Admin: 09/21/20 15:40 Dose: 1 mg Documented by: Carboprost Tromethamine (Hemabate Ds) 250 mcg IM ASDIRECTED PRN PRN Reason: Post Hemorrhage Fentanyl (Sublimaze) Confirm Administered Dose 200 mcg .ROUTE .STK-MED ONE Stop: 09/21/20 20:21 Oxytocin/Sodium Chloride (Oxytocin 30 Unit/500 Ml-Ns) 30 unit in 500 mls @ 500 mls/hr IV TITRATE BLANCA Last Admin: 09/21/20 22:39 Dose: 500 mls/hr Documented by: Tranexamic Acid 1,000 mg/ (Sodium Chloride) 110 mls @ 660 mls/hr IV ONETIME PRN PRN Reason: Bleeding Lactated Ringer's (Ringers, Lactated) 1,000 mls @ 150 mls/hr IV ASDIRECTED BLANCA Last Infusion: 09/21/20 21:25 Dose: 500 mls/hr Documented by: Oxytocin/Sodium Chloride (Oxytocin 30 Unit/500 Ml-Ns) 30 unit in 500 mls @ 2 mls/hr IV TITRATE BLANCA; Protocol Ropivacaine (Naropin 0.2%) Confirm Administered Dose 100 mls @ as directed .ROUTE .STK-MED ONE Stop: 09/21/20 20:20 Oxytocin/Sodium Chloride (Oxytocin 30 Unit/500 Ml-Ns) Confirm Administered Dose 30 unit in 500 mls @ as directed .ROUTE .STK-MED ONE Stop: 09/21/20 21:28 Lidocaine HCl (Xylocaine 1%) 50 ml INJECT ONETIME PRN PRN Reason: Laceration repair Methylergonovine Maleate (Methergine) 0.2 mg IM ASDIRECTED PRN PRN Reason: Post Hemorrhage Misoprostol (Cytotec) 200 mcg PO ONETIME PRN PRN Reason: Post Hemorrhage Misoprostol (Cytotec) 25 mcg VAG ONETIME PRN PRN Reason: Cervical Ripening Last Admin: 09/21/20 13:40 Dose: 25 mcg Documented by: Misoprostol (Cytotec) 25 mcg VAG Q4H PRN PRN Reason: Cervical Ripening Misoprostol (Cytotec) 25 mcg PO ONETIME ONE Stop: 09/21/20 13:06 Last Admin: 09/21/20 13:37 Dose: 25 mcg Documented by: Nalbuphine HCl (Nubain) 10 mg IVPUSH Q1H PRN PRN Reason: Pain (severe 7-10) Ropivacaine (Naropin 0.2%) Confirm Administered Dose 20 ml .ROUTE .STK-MED ONE Stop: 09/21/20 20:21 Sodium Chloride (Saline Flush) 10 ml FLUSH ASDIRECTED PRN PRN Reason: Keep Vein Open Sodium Chloride (Saline Flush) 2.5 ml FLUSH ASDIRECTED PRN PRN Reason: Keep Vein Open Sodium Chloride (Normal Saline) 10 ml IV ASDIRECTED PRN PRN Reason: IV Use Sterile Water (Sterile Water For Irrigation) 1,000 ml IRR ASDIRECTED PRN PRN Reason: delivery Terbutaline Sulfate (Brethine) 0.25 mg SUBCUT ASDIRECTED PRN PRN Reason: Tacysystole - Exam General: Alert, Oriented, Cooperative, No Acute Distress HEENT: Pupils Equal, Pupils Reactive, Mucous Membr. Moist/[place] Neck: Supple Lungs: Clear to Auscultation, Normal Respiratory Effort Cardiovascular: Regular Rate, Regular Rhythm GI/Abdominal Exam: Normal Bowel Sounds, Soft, Non-Tender, No Organomegaly, No Distention (Female) Exam: Enlarged Uterus ( uterus, firm U-1), Vaginal Bleeding (Scant to small rubra lochia.) Back Exam: Normal Inspection, Full Range of Motion Extremities: Normal Inspection, Normal Range of Motion, Non-Tender, No Pedal Edema, Normal Capillary Refill Skin: Warm, Dry, Intact Neurological: No New Focal Deficit (BLE epidural analgesia) Psy/Mental Status: Alert, Normal Affect, Normal Mood - Problem List & Annotations (1) (normal spontaneous vaginal delivery) SNOMED Code(s): 61933755, 695882386 Code(s): O80 - ENCOUNTER FOR FULL-TERM UNCOMPLICATED DELIVERY Status: Acute Priority: High Current Visit: Yes (2) Lactating mother SNOMED Code(s): 468879012, 158138639 Code(s): Z39.1 - ENCOUNTER FOR CARE AND EXAMINATION OF LACTATING MOTHER Status: Acute Priority: High Current Visit: Yes - Problem List Review Problem List Initiated/Reviewed/Updated: Yes - My Orders Last 24 Hours: My Active Orders 09/21/20 Dinner Regular Diet [DIET] 09/21/20 22:52 Patient Status [ADT] Routine May Shower [RC] ASDIRECTED Up ad Shaunna [RC] ASDIRECTED Vital Signs [RC] PER UNIT ROUTINE Acetaminophen [Tylenol Extra Strength] 1,000 mg PO Q4H PRN Acetaminophen [Tylenol Extra Strength] 500 mg PO Q4H PRN Benzocaine/Menthol [Dermoplast Pain Relief 20%-0.5% [place]] 78 gm TOP ASDIRECTED PRN Docusate Sodium [Colace] 100 mg PO BID PRN Ibuprofen [Motrin] 400 mg PO Q4H PRN Ibuprofen [Motrin] 800 mg PO Q6H PRN Lanolin [Lansinoh HPA] See Dose Instructions TOP ASDIRECTED PRN bisacodyL [Dulcolax] 10 mg RECTAL ONETIME PRN oxyCODONE 5 mg PO Q2H PRN witch Ryan [Tucks] 1 pad TOP ASDIRECTED PRN Assess Lochia [WOMSER] Per Unit Routine Assess Uterine Involution [WOMSER] Per Unit Routine Ice Therapy [OM.PC] Per Unit Routine Perineal Care [OM.PC] Per Unit Routine Peripheral IV Discontinue [OM.PC] Routine Sitz Bath [OM.PC] Per Unit Routine Resuscitation Status Routine 09/21/20 22:53 Cooling Warming Measures [RC] ASDIRECTED 09/22/20 05:11 HEMOGLOBIN/HEMATOCRIT,HH [HEME] Timed 09/22/20 09:00 Iron Polysaccharides Complex [Ferrex 150] 150 mg PO BID - Plan Plan:: Admit for inpatient unit S/P uncomplicated of term viable NBF. Stop epidural now. May ambulate with assistance in 2-4 hours s/p epidural completion. If unable to void within 6 hours, plan bladder scan and contact on- call provider. assistance if needed. Pre-delivery Hgb 8.9; re-draw H/H at 0500. Start 150 mg PO iron BID in am x 4 weeks, then decrease to once daily thereafter. See new orders. Dr. Montes notified and agreeable with POC.
[2020-09-22] MEDS: Ibuprofen 800 MG Tab PO PRN ×3 (05:45→21:15)
[2020-09-22] MEDS: Iron Polysaccharides Complex 150 MG Cap PO SCH ×2 (08:42→21:03)
--- NOTE | 2020-09-22 09:11 | PCM48HPAN ---
Post Anesthesia Note - EVALUATION WITHIN 48HRS OF ANESTHETIC Vital Signs in Normal Range: Yes Patient Participated in Evaluation: Yes Respiratory Function Stable: Yes Airway Patent: Yes Cardiovascular Function Stable: Yes Hydration Status Stable: Yes Pain Control Satisfactory: Yes Nausea and Vomiting Control Satisfactory: Yes Mental Status Recovered: Yes Vital Signs: Last Vital Signs Temp 37.0 C 09/22/20 04:03 Pulse 81 09/22/20 04:03 Resp 14 09/22/20 04:03 BP 131/73 09/22/20 04:03 Pulse Ox 96 09/22/20 04:03 - COMMENTS/OBSERVATIONS Free Text/Narrative:: No anesthesia complications or concerns at this time.
--- NOTE | 2020-09-22 09:41 | PCM.PNPP ---
- General Info Date of Service: 09/22/20 Admission Dx/Problem (Free Text): Patient Status Order with Admit Dx/Problem 09/21/20 12:42 Patient Status [ADT] Routine Admission Diagnosis/Problem Admission Diagnosis/Problem 09/21/20 17:10 Bess is a 19 yo PPD0 S/P uncomplicated to term NBF. A pos, Ab screen neg, RI, GBS neg. Patient has no complaints or concerns at this time. Patient is breast and bottle feeding well, resting comfortably in bed with in bassinet. Patient reports she is eating, voiding, ambulating independently and without difficulty. Patient denies any problems or concerns at this time except mild-moderate intermittent uterine cramping and low-back pain somewhat relieved with Ibuprofen. Patient reports moderate vaginal bleeding with no clots. Patient verbalizes her readiness to be discharged home [facility]. Functional Status: Reports: Pain Controlled, Tolerating Diet, Ambulating, Urinating - Review of Systems General: Reports: No Symptoms HEENT: Reports: No Symptoms Pulmonary: Reports: No Symptoms Cardiovascular: Reports: No Symptoms Gastrointestinal: Reports: No Symptoms Genitourinary: Reports: No Symptoms Musculoskeletal: Reports: No Symptoms Skin: Reports: No Symptoms Neurological: Reports: No Symptoms Psychiatric: Reports: No Symptoms - General Info Date of Service: 09/22/20 - Patient Data Vital Signs - Most Recent: Last Vital Signs Temp 98.6 F 09/22/20 04:03 Pulse 81 09/22/20 04:03 Resp 14 09/22/20 04:03 BP 131/73 09/22/20 04:03 Pulse Ox 96 09/22/20 04:03 Weight - Most Recent: 180 lb Lab Results - Last 24 Hours: Laboratory Results - last 24 hr 09/21/20 09/21/20 09/21/20 Range/Units 12:15 12:15 12:45 WBC 10.65 (4.0-11.0) K/uL RBC 3.82 L (4.30-5.90) M/uL Hgb 8.9 L (12.0-16.0) g/dL Hct 29.7 L (36.0-46.0) % MCV 77.7 L (80.0-98.0) fL MCH 23.3 L (27.0-32.0) pg MCHC 30.0 L (31.0-37.0) g/dL RDW Std Deviation 45.9 (28.0-62.0) fl RDW Coeff of Nohemy 16 H (11.0-15.0) % Plt Count 237 (150-400) K/uL MPV 9.70 (7.40-12.00) fL Nucleated RBC % 1.2 /100WBC Nucleated RBCs # 0 K/uL SARS-CoV-2 RNA (MARYELLEN) NEGATIVE (NEGATIVE) Blood Type A POSITIVE Antibody Screen NEGATIVE 09/22/20 Range/Units 04:54 WBC (4.0-11.0) K/uL RBC (4.30-5.90) M/uL Hgb 9.1 L (12.0-16.0) g/dL Hct 30.4 L (36.0-46.0) % MCV (80.0-98.0) fL MCH (27.0-32.0) pg MCHC (31.0-37.0) g/dL RDW Std Deviation (28.0-62.0) fl RDW Coeff of Nohemy (11.0-15.0) % Plt Count (150-400) K/uL MPV (7.40-12.00) fL Nucleated RBC % /100WBC Nucleated RBCs # K/uL SARS-CoV-2 RNA (MARYELLEN) (NEGATIVE) Blood Type Antibody Screen Med Orders - Current: Current Medications Acetaminophen (Tylenol Extra Strength) 500 mg PO Q4H PRN PRN Reason: Pain Acetaminophen (Tylenol Extra Strength) 1,000 mg PO Q4H PRN PRN Reason: Pain Benzocaine/Menthol (Dermoplast Pain Relief 20%-0.5% [place]) 78 gm TOP ASDIRECTED PRN PRN Reason: Perineal Comfort Measure Bisacodyl (Dulcolax) 10 mg RECTAL ONETIME PRN PRN Reason: Constipation Docusate Sodium (Colace) 100 mg PO BID PRN PRN Reason: Constipation Emollient Ointment (Lansinoh Hpa) 0 gm TOP ASDIRECTED PRN PRN Reason: Sore Nipples Ibuprofen (Motrin) 400 mg PO Q4H PRN PRN Reason: Pain Ibuprofen (Motrin) 800 mg PO Q6H PRN PRN Reason: Pain Last Admin: 09/22/20 05:45 Dose: 800 mg Documented by: Oxycodone HCl (Oxycodone) 5 mg PO Q2H PRN PRN Reason: Pain Polysaccharide Iron Complex (Ferrex 150) 150 mg PO BID [facility] Last Admin: 09/22/20 08:42 Dose: 150 mg Documented by: Sugar Price) 1 pad TOP ASDIRECTED PRN PRN Reason: comfort care Discontinued Medications Butorphanol Tartrate (Stadol) 1 mg IVPUSH Q1H PRN PRN Reason: Pain Last Admin: 09/21/20 15:40 Dose: 1 mg Documented by: Carboprost Tromethamine (Hemabate Ds) 250 mcg IM ASDIRECTED PRN PRN Reason: Post Hemorrhage Fentanyl (Sublimaze) Confirm Administered Dose 200 mcg .ROUTE .STK-MED ONE Stop: 09/21/20 20:21 Oxytocin/Sodium Chloride (Oxytocin 30 Unit/500 Ml-Ns) 30 unit in 500 mls @ 500 mls/hr IV TITRATE [facility] Last Admin: 09/21/20 22:39 Dose: 500 mls/hr Documented by: Tranexamic Acid 1,000 mg/ (Sodium Chloride) 110 mls @ 660 mls/hr IV ONETIME PRN PRN Reason: Bleeding Lactated Ringer's (Ringers, Lactated) 1,000 mls @ 150 mls/hr IV ASDIRECTED [facility] Last Infusion: 09/21/20 21:25 Dose: 500 mls/hr Documented by: Oxytocin/Sodium Chloride (Oxytocin 30 Unit/500 Ml-Ns) 30 unit in 500 mls @ 2 mls/hr IV TITRATE [facility]; Protocol Ropivacaine (Naropin 0.2%) Confirm Administered Dose 100 mls @ as directed .ROUTE .STK-MED ONE Stop: 09/21/20 20:20 Oxytocin/Sodium Chloride (Oxytocin 30 Unit/500 Ml-Ns) Confirm Administered Dose 30 unit in 500 mls @ as directed .ROUTE .STK-MED ONE Stop: 09/21/20 21:28 Lidocaine HCl (Xylocaine 1%) 50 ml INJECT ONETIME PRN PRN Reason: Laceration repair Methylergonovine Maleate (Methergine) 0.2 mg IM ASDIRECTED PRN PRN Reason: Post Hemorrhage Misoprostol (Cytotec) 200 mcg PO ONETIME PRN PRN Reason: Post Hemorrhage Misoprostol (Cytotec) 25 mcg VAG ONETIME PRN PRN Reason: Cervical Ripening Last Admin: 09/21/20 13:40 Dose: 25 mcg Documented by: Misoprostol (Cytotec) 25 mcg VAG Q4H PRN PRN Reason: Cervical Ripening Misoprostol (Cytotec) 25 mcg PO ONETIME ONE Stop: 09/21/20 13:06 Last Admin: 09/21/20 13:37 Dose: 25 mcg Documented by: Nalbuphine HCl (Nubain) 10 mg IVPUSH Q1H PRN PRN Reason: Pain (severe 7-10) Ropivacaine (Naropin 0.2%) Confirm Administered Dose 20 ml .ROUTE .STK-MED ONE Stop: 09/21/20 20:21 Sodium Chloride (Saline Flush) 10 ml FLUSH ASDIRECTED PRN PRN Reason: Keep Vein Open Sodium Chloride (Saline Flush) 2.5 ml FLUSH ASDIRECTED PRN PRN Reason: Keep Vein Open Sodium Chloride (Normal Saline) 10 ml IV ASDIRECTED PRN PRN Reason: IV Use Sterile Water (Sterile Water For Irrigation) 1,000 ml IRR ASDIRECTED PRN PRN Reason: delivery Terbutaline Sulfate (Brethine) 0.25 mg SUBCUT ASDIRECTED PRN PRN Reason: Tacysystole - Interaction Infant Disposition, : at Bedside Interaction: Not Interacting Infant Feeding: Breastfed Infant; Nursed Well, Encouraged to Breastfeed Support Person: Significant Other - Recovery Exam Fundal Tone: Firm Fundal Level: 2 Fingerbreadths Below Umbilicus Fundal Placement: Midline Lochia Amount: Moderate Lochia Color: Rubra/Red Perineum Description: Intact, Minimal Bruising/Swelling Episiotomy/Laceration: None Bladder Status: Nonpalpable, Voiding Urinary Elimination: Voided - Exam General: Alert, Oriented, Cooperative, No Acute Distress HEENT: Pupils Equal, Mucous Membr. Moist/[place] Neck: Supple Lungs: Clear to Auscultation, Normal Respiratory Effort Cardiovascular: Regular Rate, Regular Rhythm GI/Abdominal Exam: Normal Bowel Sounds, Soft, Non-Tender, No Organomegaly, No Distention Extremities: Normal Inspection, Normal Range of Motion, Non-Tender, No Pedal Edema, Normal Capillary Refill Skin: Warm, Dry, Intact Neurological: No New Focal Deficit Psy/Mental Status: Alert, Normal Affect, Normal Mood - Problem List & Annotations (1) (normal spontaneous vaginal delivery) SNOMED Code(s): 66819804, 866741354 Code(s): O80 - ENCOUNTER FOR FULL-TERM UNCOMPLICATED DELIVERY Status: Acute Priority: High Current Visit: Yes (2) Lactating mother SNOMED Code(s): 292472421, 550727306 Code(s): Z39.1 - ENCOUNTER FOR CARE AND EXAMINATION OF LACTATING MOTHER Status: Acute Priority: High Current Visit: Yes - Problem List Review Problem List Initiated/Reviewed/Updated: Yes - My Orders Last 24 Hours: My Active Orders 09/21/20 Dinner Regular Diet [DIET] 09/21/20 22:52 Patient Status [ADT] Routine May Shower [RC] ASDIRECTED Up ad Shaunna [RC] ASDIRECTED Vital Signs [RC] PER UNIT ROUTINE Acetaminophen [Tylenol Extra Strength] 1,000 mg PO Q4H PRN Acetaminophen [Tylenol Extra Strength] 500 mg PO Q4H PRN Benzocaine/Menthol [Dermoplast Pain Relief 20%-0.5% [place]] 78 gm TOP ASDIRECTED PRN Docusate Sodium [Colace] 100 mg PO BID PRN Ibuprofen [Motrin] 400 mg PO Q4H PRN Ibuprofen [Motrin] 800 mg PO Q6H PRN Lanolin [Lansinoh HPA] See Dose Instructions TOP ASDIRECTED PRN bisacodyL [Dulcolax] 10 mg RECTAL ONETIME PRN oxyCODONE 5 mg PO Q2H PRN witch Ryan [Tucks] 1 pad TOP ASDIRECTED PRN Assess Lochia [WOMSER] Per Unit Routine Assess Uterine Involution [WOMSER] Per Unit Routine Ice Therapy [OM.PC] Per Unit Routine Perineal Care [OM.PC] Per Unit Routine Peripheral IV Discontinue [OM.PC] Routine Sitz Bath [OM.PC] Per Unit Routine Resuscitation Status Routine 09/21/20 22:53 Cooling Warming Measures [RC] ASDIRECTED 09/22/20 09:00 Iron Polysaccharides Complex [Ferrex 150] 150 mg PO BID - Plan Plan:: Hemodynamically stable, afebrile. Hemoglobin 9.1, start 1 tablet 150 mg iron supplementation BID x 4 weeks then decrease to tablet daily, F/U as indicated. Continue EBFing, eating, voiding, ambulating independently. Plan to D/C in pm or tomorrow am pending labs. Dr. Montes notified and agreeable with POC.
--- NOTE | 2020-09-22 17:31 | PCM.DCSUM1 ---
Discharge Summary - Hospital Course Free Text/Narrative:: Discharge home with baby. Follow up in the clinic in 6 weeks for routine visit; sooner, if needed. Diagnosis: Stroke: No Modified Jennifer Scale: No Symptoms at All Modified Jennifer Scale Score: 0 - Discharge Data Discharge Date: 09/22/20 Discharge Disposition: Home, Self-Care 01 Condition: Good - Referral to Home Health Primary Care Physician: Sherie Antony MD - Patient Instructions Diet: Regular Diet as Tolerated, Drink 8-10+ Glasses/Day Activity: As Tolerated, No Strenuous Activities, Rest and Relax Today Driving: May Drive Today Showering/Bathing: May Shower Notify Provider of: Fever, Increased Pain, Swelling and Redness, Drainage, Nausea and/or Vomiting - Discharge Plan *PRESCRIPTION DRUG MONITORING PROGRAM REVIEWED*: Not Applicable *COPY OF PRESCRIPTION DRUG MONITORING REPORT IN PATIENT [place]: Not Applicable Prescriptions/Med Rec: Ibuprofen [Motrin] 800 mg PO Q6H PRN #90 tablet PRN Reason: Pain Home Medications: Home Meds Acetaminophen/Diphenhydramine [Tylenol Pm Ex-Strength Caplet] 2 tab PO BEDTIME 09/21/20 [History] Ibuprofen [Motrin] 800 mg PO Q6H PRN #90 tablet 09/22/20 [Rx] Oxygen Therapy Mode: Room Air Referrals: Jena Ruiz, [facility], [employer] [Mid-] - 11/06/20 9:30 am - Discharge Summary/Plan Comment DC Time >30 min.: Yes - General Info Date of Service: 09/22/20 Admission Dx/Problem (Free Text: Patient Status Order with Admit Dx/Problem 09/21/20 12:42 Patient Status [ADT] Routine Admission Diagnosis/Problem Admission Diagnosis/Problem 09/21/20 17:10 Bess is a 19 yo PPD0 S/P uncomplicated to term NBF. A pos, Ab screen neg, RI, GBS neg. Patient has no complaints or concerns at this time. Patient is breast and bottle feeding well, resting comfortably in bed with in bassinet. Patient reports she is eating, voiding, ambulating independently and without difficulty. Patient denies any problems or concerns at this time except mild-moderate intermittent uterine cramping and low-back pain somewhat relieved with Ibuprofen. Patient reports moderate vaginal bleeding with no clots. Patient verbalizes her readiness to be discharged home [facility]. Functional Status: Reports: Pain Controlled, Tolerating Diet, Ambulating, Urinating - Review of Systems General: Reports: No Symptoms HEENT: Reports: No Symptoms Pulmonary: Reports: No Symptoms Cardiovascular: Reports: No Symptoms Gastrointestinal: Reports: No Symptoms Genitourinary: Reports: No Symptoms Musculoskeletal: Reports: No Symptoms Skin: Reports: No Symptoms Neurological: Reports: No Symptoms Psychiatric: Reports: No Symptoms - Patient Data Vitals - Most Recent: Last Vital Signs Temp 96.9 F 09/22/20 16:00 Pulse 76 09/22/20 16:00 Resp 15 09/22/20 16:00 BP 111/60 09/22/20 16:00 Pulse Ox 98 09/22/20 16:00 Weight - Most Recent: 180 lb Lab Results - Last 24 hrs: Laboratory Results - last 24 hr 09/21/20 09/22/20 Range/Units 12:15 04:54 Hgb 9.1 L (12.0-16.0) g/dL Hct 30.4 L (36.0-46.0) % RPR Non-Reac (Non-Reac) Med Orders - Current: Current Medications Acetaminophen (Tylenol Extra Strength) 500 mg PO Q4H PRN PRN Reason: Pain Last Admin: 09/22/20 17:15 Dose: 500 mg Documented by: Acetaminophen (Tylenol Extra Strength) 1,000 mg PO Q4H PRN PRN Reason: Pain Last Admin: 09/22/20 11:05 Dose: 1,000 mg Documented by: Benzocaine/Menthol (Dermoplast Pain Relief 20%-0.5% [place]) 78 gm TOP ASDIRECTED PRN PRN Reason: Perineal Comfort Measure Bisacodyl (Dulcolax) 10 mg RECTAL ONETIME PRN PRN Reason: Constipation Docusate Sodium (Colace) 100 mg PO BID PRN PRN Reason: Constipation Emollient Ointment (Lansinoh Hpa) 0 gm TOP ASDIRECTED PRN PRN Reason: Sore Nipples Ibuprofen (Motrin) 400 mg PO Q4H PRN PRN Reason: Pain Ibuprofen (Motrin) 800 mg PO Q6H PRN PRN Reason: Pain Last Admin: 09/22/20 15:06 Dose: 800 mg Documented by: Oxycodone HCl (Oxycodone) 5 mg PO Q2H PRN PRN Reason: Pain Polysaccharide Iron Complex (Ferrex 150) 150 mg PO BID [facility] Last Admin: 09/22/20 08:42 Dose: 150 mg Documented by: Sugar Price) 1 pad TOP ASDIRECTED PRN PRN Reason: comfort care Discontinued Medications Butorphanol Tartrate (Stadol) 1 mg IVPUSH Q1H PRN PRN Reason: Pain Last Admin: 09/21/20 15:40 Dose: 1 mg Documented by: Carboprost Tromethamine (Hemabate Ds) 250 mcg IM ASDIRECTED PRN PRN Reason: Post Hemorrhage Fentanyl (Sublimaze) Confirm Administered Dose 200 mcg .ROUTE .ST-MED ONE Stop: 09/21/20 20:21 Oxytocin/Sodium Chloride (Oxytocin 30 Unit/500 Ml-Ns) 30 unit in 500 mls @ 500 mls/hr IV TITRATE [facility] Last Admin: 09/21/20 22:39 Dose: 500 mls/hr Documented by: Tranexamic Acid 1,000 mg/ (Sodium Chloride) 110 mls @ 660 mls/hr IV ONETIME PRN PRN Reason: Bleeding Lactated Ringer's (Ringers, Lactated) 1,000 mls @ 150 mls/hr IV ASDIRECTED [facility] Last Infusion: 09/21/20 21:25 Dose: 500 mls/hr Documented by: Oxytocin/Sodium Chloride (Oxytocin 30 Unit/500 Ml-Ns) 30 unit in 500 mls @ 2 mls/hr IV TITRATE [facility]; Protocol Ropivacaine (Naropin 0.2%) Confirm Administered Dose 100 mls @ as directed .ROUTE .STK-MED ONE Stop: 09/21/20 20:20 Oxytocin/Sodium Chloride (Oxytocin 30 Unit/500 Ml-Ns) Confirm Administered Dose 30 unit in 500 mls @ as directed .ROUTE .STK-MED ONE Stop: 09/21/20 21:28 Lidocaine HCl (Xylocaine 1%) 50 ml INJECT ONETIME PRN PRN Reason: Laceration repair Methylergonovine Maleate (Methergine) 0.2 mg IM ASDIRECTED PRN PRN Reason: Post Hemorrhage Misoprostol (Cytotec) 200 mcg PO ONETIME PRN PRN Reason: Post Hemorrhage Misoprostol (Cytotec) 25 mcg VAG ONETIME PRN PRN Reason: Cervical Ripening Last Admin: 09/21/20 13:40 Dose: 25 mcg Documented by: Misoprostol (Cytotec) 25 mcg VAG Q4H PRN PRN Reason: Cervical Ripening Misoprostol (Cytotec) 25 mcg PO ONETIME ONE Stop: 09/21/20 13:06 Last Admin: 09/21/20 13:37 Dose: 25 mcg Documented by: Nalbuphine HCl (Nubain) 10 mg IVPUSH Q1H PRN PRN Reason: Pain (severe 7-10) Ropivacaine (Naropin 0.2%) Confirm Administered Dose 20 ml .ROUTE .STK-MED ONE Stop: 09/21/20 20:21 Sodium Chloride (Saline Flush) 10 ml FLUSH ASDIRECTED PRN PRN Reason: Keep Vein Open Sodium Chloride (Saline Flush) 2.5 ml FLUSH ASDIRECTED PRN PRN Reason: Keep Vein Open Sodium Chloride (Normal Saline) 10 ml IV ASDIRECTED PRN PRN Reason: IV Use Sterile Water (Sterile Water For Irrigation) 1,000 ml IRR ASDIRECTED PRN PRN Reason: delivery Terbutaline Sulfate (Brethine) 0.25 mg SUBCUT ASDIRECTED PRN PRN Reason: Tacysystole - Exam General: Reports: Alert, Oriented, Cooperative, No Acute Distress Lungs: Reports: Normal Respiratory Effort Cardiovascular: Reports: Regular Rate, Regular Rhythm GI/Abdominal Exam: Soft, Non-Tender (Female) Exam: Deferred Rectal (Female) Exam: Deferred Back Exam: Reports: Normal Inspection, Full Range of Motion Extremities: Normal Inspection, Normal Range of Motion, Non-Tender, Normal Capillary Refill Skin: Reports: Warm, Dry, Intact Neurological: Reports: No New Focal Deficit, Normal Speech, Normal Tone, Sensation Intact Psy/Mental Status: Reports: Alert, Normal Affect, Normal Mood
[2020-09-22 21:05] VITALS: BP 122/82; PULSE 108
== END 2020-09-23 01:03 | disposition home or self-care (01) | DRG 807 ==
LOC: MW.OBCHECK 11:59 → MW.OB 12:00 → MW.OBCHECK 22:50 → OBSVTOIN 22:52 → MW.OB 09-22 00:44
PROVIDERS: ADMIT Obstetrics & Gynecology; ATTEND Obstetrics & Gynecology
PROC: 10E0XZZ Delivery of Products of Conception, External Approach (ICD-10-PCS; principal; 2020-09-21)
PROC: 10907ZC Drainage of Amniotic Fluid, Therapeutic from Products of Conception, Via Natural or Artificial Opening (ICD-10-PCS; 2020-09-21)
PROC: 3E0P7VZ Introduction of Hormone into Female Reproductive, Via Natural or Artificial Opening (ICD-10-PCS; 2020-09-21)
PROC: 3E0R3BZ Introduction of Anesthetic Agent into Spinal Canal, Percutaneous Approach (ICD-10-PCS; 2020-09-21)
DX: O99.344 Other mental disorders complicating childbirth (principal); Z37.0 Single live birth; Z3A.39 39 weeks gestation of pregnancy; F41.9 Anxiety disorder, unspecified; F32.9 Major depressive disorder, single episode, unspecified; Z20.822 Contact with and (suspected) exposure to COVID-19
CPT/HCPCS: 01967; 36415; 51702; 59025; 59409; 85014; 85018; 85027; 86592; 86850; 86900; 86901; A9270-GY; J0595; J2590; J2795; J3010; J7120; U0002

== ENCOUNTER 2022-06-11 18:23 | Emergency (ER) | payer MEDICAID | END 2022-06-11 21:00 | disposition home or self-care (01) | LOC: MW.ED 18:23 | DX: L50.9 Urticaria, unspecified (principal); Z88.0 Allergy status to penicillin | CPT/HCPCS: 99282 ==

== ENCOUNTER 2023-01-24 10:14 | Emergency (ER) | payer MEDICAID ==
[2023-01-24 13:04] VITALS: BP 122/65; PULSE 81
== END 2023-01-24 13:03 | disposition home or self-care (01) ==
LOC: MW.ED 10:14
DX: S92.355A Nondisplaced fracture of fifth metatarsal bone, left foot, initial encounter for closed fracture (principal); Z88.0 Allergy status to penicillin; W20.8XXA Other cause of strike by thrown, projected or falling object, initial encounter
CPT/HCPCS: 29515; 73630-26-LT; 73630-LT; 99283

== ENCOUNTER 2025-03-24 21:41 | Emergency (ER) | payer MEDICAID ==
[2025-03-24] MEDS ORDERED: Diphtheria,Pertussis(Acell),Tetanus Vaccine 0.5 ML Syringe IM ONE (22:43)
[2025-03-24 22:53] VITALS: BP 148/95; PULSE 105
== END 2025-03-24 22:52 | disposition home or self-care (01) ==
LOC: MW.ED 21:41
DX: S00.81XA Abrasion of other part of head, initial encounter (principal); Z23 Encounter for immunization; Z88.0 Allergy status to penicillin; Z79.899 Other long term (current) drug therapy; W01.198A Fall on same level from slipping, tripping and stumbling with subsequent striking against other object, initial encounter; Y93.89 Activity, other specified
CPT/HCPCS: 99282; 99283